=== PATIENT | male | born 2000 ===

== ENCOUNTER 2020-02-08 15:00 | Outpatient (REF) | payer BC, SELFPAY ==
[2020-02-10 22:53] LABS: SARS-CoV-2 RNA Undetected (Undetected)
== END 2020-02-08 15:20 ==
LOC: LBN 15:00
PROVIDERS: PCP Pediatrics; Visit Provider Nurse Practitioner Family
DX: Z11.59 Encounter for screening for other viral diseases (principal)
CPT/HCPCS: U0003

== ENCOUNTER 2020-07-20 10:34 | Outpatient (CLI) | payer OTHER, SELFPAY ==
--- NOTE | 2020-07-20 08:45 | DI.RAD_ITS ---
EXAM: XR KNEE LT 3V AP,LAT,MIGUELITO CLINICAL HISTORY: left knee pain. TECHNIQUE: 2D digital imaging was performed. COMPARISON: No exams were available for comparison FINDINGS: BONES: No acute fracture is present. No bony destructive lesion is seen. JOINTS: The knee is normally aligned. No joint effusion is seen. SOFT TISSUE: Normal. IMPRESSION: Normal radiographs of the left knee. DATA REPOSITORY: RADIATION DOSE DELIVERED:
== END 2020-07-20 10:54 ==
PROVIDERS: PCP Pediatrics; Referring Provider Pediatrics; Visit Provider Physician Assistant
DX: M25.562 Pain in left knee (principal)
CPT/HCPCS: 73562

== ENCOUNTER 2021-03-26 16:05 | Outpatient (CLI) | payer OTHER, SELFPAY ==
--- NOTE | 2021-03-26 15:30 | DI.RAD_ITS ---
Exam(s) XR SHOULDER LT COMPLETE 2+V EXAM: XR SHOULDER LT COMPLETE 2+V CLINICAL HISTORY: left pectoralis muscle rupture. TECHNIQUE: 2D digital imaging was performed of the left shoulder. Four images were obtained. AP an d Y-view views were obtained. COMPARISON: No exams were available for comparison FINDINGS: BONES: No acute fracture is present. No bony destructive lesion is seen. JOINTS: No dislocation present. SOFT TISSUE: Normal. IMPRESSION: Unremarkable radiographs of the left shoulder. DATA REPOSITORY: RADIATION DOSE DELIVERED:
== END 2021-03-26 16:06 | disposition home or self-care (01) ==
LOC: DIORS 16:05
PROVIDERS: Visit Provider Student in an Organized Health Care Education/Training Program
DX: S29.011A Strain of muscle and tendon of front wall of thorax, initial encounter (principal); X58.XXXA Exposure to other specified factors, initial encounter
CPT/HCPCS: 73030

== ENCOUNTER 2021-03-27 11:55 | Outpatient (CLI) | payer OTHER, SELFPAY ==
--- NOTE | 2021-03-27 10:45 | DI.MRI_ITS ---
Exam(s) MR UPPER JOINT LT WO EXAM: MR UPPER JOINT LT WO CLINICAL HISTORY: Pectoralis major tendon avulsion, S29.011A TECHNIQUE: Multiplanar multisequence MRI of the shoulder was performed. COMPARISON: CR XR SHOULDER LT COMPLETE 2+V from 03/26/2021 FINDINGS: MARROW:There is no evidence of fracture, Hill-Sachs deformity, nor ominous osseous lesions. ROTATOR CUFF MECHANISM: AC JOINT/ACROMIUM: There are no significant degenerative changes in the AC joint.. There is no evidence of os acromiale. Supraspinatus: Intact. No evidence of tear nor muscle atrophy. Infraspinatus: Intact. No evidence of tear nor muscle atrophy. Teres Minor: Intact. No evidence of tear nor muscle atrophy. Subscapularis/anterior cuff: Intact. No abnormal signal at the level of the multipennate insertional fibers. No significant tear nor atrophy. BICEPS TENDON: Normally position in the intertubercular groove. No evidence of tear. No tenosynovitis. LABRUM: No labral tear identified. No evidence of paralabral cyst. LABROLIGAMENTOUS/CAPSULAR COMPLEX: There is no evidence of avulsion of the anterior-inferior labrum, capsule, inferior glenohumeral liga ment complex nor disruption of the scapular periosteum to suggest the presence of a Bankart lesion. Also no evidence of obvious Bankart lesion variants. GLENOHUMERAL JOINT: No joint effusion nor obvious loose intra-articular bodies. No chondral defects. No osteophytes. No degenerative subarticular cysts. No evidence of capsular tear. The inferior gle nohumeral ligament is intact. QUADRILATERAL SPACE: No evidence of mass in the region of the axillary nerve and dorsal circumflex hu meral vessels. Visualized triceps muscle at this level appears unremarkable. OTHER: There is significant signal abnormality in the visualized left pectoralis major muscle which i s is partially included field view. The most medial aspect sternal attachment region is not included in the field of view. Laterally, there is muscle tear signal in the pectoralis with most prominent in jury signal being in the region musculotendinous junction most prominent abnormal fluid signal is loc ated medially in the region of the musculotendinous junction where there is significant tearing. Tend on appears torn at the lateral lip attachment site of the bicipital groove. IMPRESSION: 1. There is disruption of the pectoralis myotendinous unit at the humeral insertional site on the lat eral aspect of the bicipital groove. 2. There is signal abnormality in pectoralis and with edema extending down the anterior aspect of the upper extremity anterior to the lower deltoid and anterior to the biceps. Biceps tendons appear inta ct. 3. Rotator cuff mechanism musculature intact, including the anterior cuff-subscapularis. DATA REPOSITORY:
== END 2021-03-27 12:15 ==
PROVIDERS: Visit Provider Student in an Organized Health Care Education/Training Program
DX: S29.011A Strain of muscle and tendon of front wall of thorax, initial encounter (principal); X58.XXXA Exposure to other specified factors, initial encounter
CPT/HCPCS: 73221